=== PATIENT | male | born 1975 | race Caucasian/White ===

== ENCOUNTER → 2018-10-01 | Day surgery (SDC) | payer BC ==
[~2018-10-01] MED LIST: BUPIVACAIN-EPI 0.25%-1:200,000 30 ML VIAL SQ ONE; CHLOROPROCAINE 3% 30 MG/ML 20 ML VIAL ONE; LACTATED RINGERS 1,000 ML IV SCH; LIDOCAINE 1% 20 ML VIAL (10MG/ML) FOR IV START INTRADERMA ONE; SODIUM CHLORIDE 0.9% 50 ML with ceFAZolin 2,000 MG IV ONE; ceFAZolin 1,000 MG VIAL ONE
--- NOTE | 2018-10-01 07:54 | P.GSHP ---
History of Present Illness H&P Date: 10/01/18 Chief Complaint: Pilonidal cyst This a 43-year-old male who has an infected pilonidal cyst. Patient presents today for excision of pilonidal cyst. Patient aware that the wound will be packed postoperatively. Past Medical History Past Medical History: GERD/Reflux History of Any Multi-Drug Resistant Organisms: None Reported Past Surgical History: Orthopedic Surgery Smoking Status: Never smoker Past Drug Use History: None Reported Medications and Allergies Home Medications Medication Instructions Recorded Confirmed Type Ranitidine HCl [Zantac] 75 mg PO HS PRN 10/01/18 History Allergies Allergy/AdvReac Type Severity Reaction Status Date / Time No Known Allergies Allergy Verified 10/01/18 07:18 Surgical - Exam Vital Signs Temp Pulse Resp BP Pulse Ox 97.3 F L 74 18 125/76 97 10/01/18 07:23 10/01/18 07:23 10/01/18 07:23 10/01/18 07:23 10/01/18 07:23 - General well developed, well nourished, no distress - Eyes PERRL - ENT normal pinna - Neck no masses - Respiratory normal expansion - Cardiovascular Rhythm: regular - Abdomen Abdomen: soft, non tender - Integumentary Pilonidal cyst with evidence of drainage. Assessment and Plan Assessment: Pilonidal cyst. We'll perform excision.
[2018-10-01 08:50] VITALS: TEMP 98
--- NOTE | 2018-10-01 09:14 | P.OP ---
Date of Procedure: 10/01/18 Preoperative Diagnosis: Inflamed pilonidal cyst Postoperative Diagnosis: Inflamed pilonidal cyst Procedure(s) Performed: Excision of pilonidal cyst Anesthesia: regional, spinal Surgeon: John Santo Estimated Blood Loss (ml): 5 Pathology: other (Pilonidal cyst) Condition: stable Disposition: PACU Description of Procedure: The patient's placed on the operating table in the prone position. He received a previous spinal anesthetic. His gluteal area was prepped and draped usual sterile fashion. Patient had a pilonidal cyst in the midportion of his gluteal cleft. Elliptical skin incision was made. And then using electrocautery and Harmonic scissors the pilonidal cyst was excised. The wound was packed with wet -to-dry saline. The wound was insufflated with 50 mL of quarter percent Xylocaine with epinephrine. There is no bleeding seen. Sterile dressing applied. Patient top she will was sent to recovery room stable condition.
[2018-10-01 09:16] VITALS: RESP 18
[2018-10-01 09:44] VITALS: BP 119/79; PULSE 74
== END ==
LOC: OR 06:26
PROVIDERS: ATTEND Surgery
DX: L05.91 Pilonidal cyst without abscess (principal); K21.9 Gastro-esophageal reflux disease without esophagitis
CPT/HCPCS: 88304; 11770; J2400; J0690 ×2

== ENCOUNTER → 2018-10-12 | Outpatient (CLI) | payer BC ==
[2018-10-12 12:52] LABS: ALT 46 U/L (21-72); AST 34 U/L (17-59); Albumin 4.4 g/dL (3.5-5.0); Albumin/Globulin Ratio 1.5; Alkaline Phosphatase 46 U/L (38-126); Anion Gap 10 mmol/L; Blood Urea Nitrogen 26 mg/dL (9-20); Calcium 9.5 mg/dL (8.4-10.2); Carbon Dioxide 27 mmol/L (22-30); Chloride 103 mmol/L (98-107); Glucose 91 mg/dL (74-99); Potassium 4.2 mmol/L (3.5-5.1); Sodium 140 mmol/L (137-145); Total Bilirubin 0.5 mg/dL (0.2-1.3); Total Protein 7.4 g/dL (6.3-8.2)
[2018-10-12 13:08] LABS: HCT 42.3 % (39.0-53.0); HGB 13.8 gm/dL (13.0-17.5); MCH 30.2 pg (25.0-35.0); MCHC 32.7 g/dL (31.0-37.0); MCV 92.4 fL (80.0-100.0); Mean Platelet Volume 6.8; Platelet Count 235 k/uL (150-450); RBC 4.58 m/uL (4.30-5.90); RDW 11.7 % (11.5-15.5); WBC 7.1 k/uL (3.8-10.6)
== END | disposition home or self-care (01) ==
LOC: LABWHC1 11:16
PROVIDERS: ATTEND Anesthesiology
DX: D64.9 Anemia, unspecified (principal)
CPT/HCPCS: 36415; 80053; 85027

== ENCOUNTER 2019-12-22 12:50 | Day surgery (SDC) | payer BC ==
[2019-12-22 09:33] LABS: Basophils % (A) 0 %; Eosinophils # (A) 0.1 k/uL (0-0.7); Eosinophils % (A) 1 %; HCT 41.6 % (39.0-53.0); Lymphocytes # (A) 1.2 k/uL (1.0-4.8); Lymphocytes % (A) 17 %; MCH 30.6 pg (25.0-35.0); MCHC 33.6 g/dL (31.0-37.0); Mean Platelet Volume 7.4; Monocytes # (A) 0.4 k/uL (0-1.0); Monocytes % (A) 6 %; Neutrophils # (A) 5.1 k/uL (1.3-7.7); Neutrophils % (A) 73 %; Platelet Count 158 k/uL (150-450); RBC 4.56 m/uL (4.30-5.90); RDW 11.8 % (11.5-15.5); WBC 6.9 k/uL (3.8-10.6)
[2019-12-22 09:38] VITALS: RESP 16; TEMP 98.3
[2019-12-22 09:52] LABS: African American GFR (CKD) >90 (>60 ml/min/1.73 sqM); Anion Gap 6 mmol/L; Blood Urea Nitrogen 16 mg/dL (9-20); Calcium 9.3 mg/dL (8.4-10.2); Carbon Dioxide 29 mmol/L (22-30); Chloride 104 mmol/L (98-107); Glucose 101 mg/dL (74-99); Non-African American GFR(CKD) >90 (>60 ml/min/1.73 sqM); Potassium 4.6 mmol/L (3.5-5.1); Sodium 139 mmol/L (137-145)
[2019-12-22 10:03] LABS: Creatine Kinase MB 0.8 ng/mL (0.0-2.4); Troponin I <0.012 ng/mL (0.000-0.034)
[~2019-12-22 12:50] MED LIST changes: +ASPIRIN 81 MG ONE; -BUPIVACAIN-EPI 0.25%-1:200,000 30 ML VIAL SQ ONE; -CHLOROPROCAINE 3% 30 MG/ML 20 ML VIAL ONE; -LACTATED RINGERS 1,000 ML IV SCH; -LIDOCAINE 1% 20 ML VIAL (10MG/ML) FOR IV START INTRADERMA ONE; +NITROGLYCERIN SL TABS 0.4 MG TAB SUBLINGUAL ONE; +SODIUM CHLORIDE 0.9% 1,000 ML IV ONE; +SODIUM CHLORIDE 0.9% 1,000 ML in EMPTY BAG 1 BAG IV ONE; -SODIUM CHLORIDE 0.9% 50 ML with ceFAZolin 2,000 MG IV ONE; -ceFAZolin 1,000 MG VIAL ONE
[2019-12-22] MEDS ORDERED: LIDOCAINE 1% INJ 10MG/ML (20 ML MDV) ONE (13:09)
[2019-12-22] MEDS ORDERED: HEPARIN SODIUM 1,000 UN/ML (10ML VL) ONE (13:09)
[2019-12-22] MEDS ORDERED: VERAPAMIL 2.5 MG/ML 2 ML AMP ONE (13:09)
[2019-12-22] MEDS ORDERED: MIDAZOLAM 2 MG/2 ML VIAL IV ONE (13:20)
[2019-12-22] MEDS ORDERED: LIDOCAINE 1% INJ 10MG/ML (20 ML MDV) SQ ONE (13:21)
[2019-12-22] MEDS ORDERED: VERAPAMIL SYRINGE (5 MG/10 ML) INTRAARTER ONE (13:22)
[2019-12-22] MEDS ORDERED: HEPARIN SODIUM 1,000 UN/ML (10ML VL) IV ONE (13:25)
[2019-12-22] MEDS ORDERED: MIDAZOLAM 2 MG/2 ML VIAL IVP ONE (13:25)
[2019-12-22] MEDS ORDERED: IOPAMIDOL-370 125ML BTL INJ ONE (13:29)
[2019-12-22] MEDS ORDERED: RX INFO: IV CONTRAST WAS GIVEN 1 EACH MISC MISCELLANE PRN (13:38)
[2019-12-22 13:41] LABS: Creatine Kinase MB 0.6 ng/mL (0.0-2.4); Troponin I <0.012 ng/mL (0.000-0.034)
[2019-12-22] MEDS ORDERED: SODIUM CHLORIDE 0.9% 1,000 ML IV SCH (13:45)
--- NOTE | 2019-12-22 15:19 | CC ---
CARDIAC CATHETERIZATION REPORT DATE OF SERVICE: 12/22/2019 PERFORMING PHYSICIAN: Rodney Garcia MD. PROCEDURE PERFORMED: Selective right and left coronary angiogram. 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 He continues to have left arm discomfort associated with chest discomfort. He would like to have a definitive diagnosis and proceed with coronary angiogram. APPROACH: Right radial artery. COMPLICATION: None. LEVEL OF SEDATION: Moderate with sedation length of 10 minutes. PROCEDURE DESCRIPTION: After obtaining an informed consent, the patient was brought to the cardiac refuse laborer. The right radial artery was cannulated using micropuncture technique and a micropuncture wire passed easily, then I placed a 6-German sheath 11 cm in the right radial artery. After that, I did give the patient 2 mg of verapamil IA and 10,000 units of heparin IV. Selective right and left coronary angiogram performed using JR4 and JL3.5 catheters. I did not perform left heart catheterization on the patient. The procedure was completed without any complication. SELECTIVE CORONARY ANGIOGRAM: 1. The right coronary artery is a large caliber vessel and is a dominant vessel. It does have an inferior takeoff. It is angiographically normal but distally bifurcates into PDA and PLV branches, both appeared to be angiographically normal. 2. The left main is angiographically normal, it bifurcates into LCX and LAD. 3. The LCX is a large caliber vessel, it is a codominant vessel. It is angiographically normal. In the midportion, it gives rise into an OM branch which appeared to be angiographically normal. 4. The ramus intermedius is a large caliber vessel and seems to be angiographically normal. 5. The LAD, the proximal LAD appeared to be normal. It gives rise into first diagonal branch which seems to be normal. The mid LAD and distal LAD are angiographically normal. The LAD gives rise in the mid and distal portion to second and third diagonal branches and they appeared to be angiographically normal. CONCLUSION: 1. Normal coronary angiogram. 2. Medical treatment. 3. Follow up with the patient in a week. MMODL / IJN: [id number] /
--- NOTE | 2019-12-22 17:26 | P.CRDCN ---
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 The patient was driving to work today when he started experiencing discomfort over the left side of the chest, as dull kind of discomfort, with some radiation to left arm associated with numbness of the left arm as well. No dizziness or lightheadedness, heart racing or fluttering, syncope, nausea, or sweating. The EKG when he arrived showed sinus rhythm with nonspecific changes in the inferior leads and also some finding consistent was LVH. He underwent an echocardiogram which revealed normal left ventricle systolic function with evidence of mild aortic insufficiency. Because he continues to have a chest discomfort and the patient would like to have a definite diagnosis we decided to pursue was coronary angiogram. Past Medical History Past Medical History: GERD/Reflux History of Any Multi-Drug Resistant Organisms: None Reported Past Surgical History: Orthopedic Surgery Smoking Status: Never smoker Past Drug Use History: None Reported Medications and Allergies Home Medications Medication Instructions Recorded Confirmed Type Atorvastatin [Lipitor] 20 mg PO HS 12/22/19 12/22/19 History Allergies Allergy/AdvReac Type Severity Reaction Status Date / Time No Known Allergies Allergy Verified 12/22/19 09:39 Physical Exam Vitals: Vital Signs Temp Pulse Resp BP BP Pulse Ox 12/22/19 09:33 98.3 F 82 16 132/82 134/84 100 Intake and Output 12/22/19 12/22/19 12/22/19 06:59 14:59 22:59 Intake Total 150 Balance 150 Intake: IV 150 Other: Weight 92 kg - Constitutional General appearance: no acute distress - Respiratory Respiratory: bilateral: CTA - Cardiovascular Rhythm: regular Heart sounds: normal: S1, S2 Results 12/22/19 09:15 12/22/19 09:15 Cardiac Enzymes 12/22/19 12/22/19 Range/Units 09:15 12:46 CK-MB (CK-2) 0.8 0.6 (0.0-2.4) ng/mL Troponin I <0.012 <0.012 (0.000-0.034) ng/mL CBC 12/22/19 Range/Units 09:15 WBC 6.9 (3.8-10.6) k/uL RBC 4.56 (4.30-5.90) m/uL Hgb 14.0 (13.0-17.5) gm/dL Hct 41.6 (39.0-53.0) % Plt Count 158 (150-450) k/uL Comprehensive Metabolic Panel 12/22/19 Range/Units 09:15 Sodium 139 (137-145) mmol/L Potassium 4.6 (3.5-5.1) mmol/L Chloride 104 (98-107) mmol/L Carbon Dioxide 29 (22-30) mmol/L BUN 16 (9-20) mg/dL Creatinine 0.88 (0.66-1.25) mg/dL Glucose 101 H (74-99) mg/dL Calcium 9.3 (8.4-10.2) mg/dL Current Medications Generic Name Dose Route Start Last Admin Trade Name Freq PRN Reason Stop Dose Admin Sodium Chloride 1,000 ml/ IV 1,000 mls @ 92.079 mls/hr 12/22/19 09:24 Solution IV 12/22/19 20:15 .[id number] ONE 1 ML/KG/HR Sodium Chloride 1,000 mls @ 75 mls/hr 12/22/19 13:45 Saline 0.9% IV 12/22/19 19:46 .[id number] FRANKIE Miscellaneous Information 1 each 12/22/19 13:38 Rx Info: Iv Contrast Was Given MISCELLANE 12/24/19 13:38 DAILY PRN Per Protocol Intake and Output 12/22/19 12/22/19 12/22/19 06:59 14:59 22:59 Intake Total 150 Balance 150 Intake: IV 150 Other: Weight 92 kg Patient Weight 12/23/19 06:59 Weight 92 kg 12/22/19 09:15 12/22/19 09:15 Assessment and Plan Assessment: Assessment #1 chest discomfort concerning for angina #2 dyslipidemia #3 significant family history of CAD Plan #1 because the patient continues to have a chest discomfort and because of the family history and he would like to have a definite diagnosis we decided to pursue with coronary angiogram. I discussed the procedure in details to the patient. He will be scheduled to undergo coronary angiogram later on today.
[2019-12-22 20:03] VITALS: BP 145/78; PULSE 81
--- NOTE | 2019-12-23 16:34 | ECHOF ---
Referral Reason:chest pain MEASUREMENTS -------- HEIGHT: 172.7 cm WEIGHT: 72.6 kg BP: RVIDd: 2.7 cm (< 3.3) IVSd: 1.5 cm (0.6 - 1.1) LVIDd: 4.2 cm (3.9 - 5.3) LVPWd: 1.3 cm (0.6 - 1.1) IVSs: 1.6 cm LVIDs: 3.2 cm LVPWs: 1.4 cm LA Diam: 3.1 cm (2.7 - 3.8) Ao Diam: 3.5 cm (2.0 - 3.7) AV Cusp: 1.8 cm (1.5 - 2.6) MV EXCURSION: 17.245 mm (> 18.000) MV EF SLOPE: 55 mm/s (70 - 150) EPSS: 0.7 cm MV E Jhonatan: 0.66 m/s MV DecT: 273 ms MV A Jhonatan: 0.76 m/s MV E/A Ratio: 0.88 AR PHT: 413 ms RAP: 5.00 mmHg RVSP: 28.47 mmHg FINDINGS -------- Sinus rhythm. This was a technically good study. The left ventricular size is normal. There is moderate concentric left ventricular hypertrophy. O verall left ventricular systolic function is normal with, an EF between 55 - 60 %. The diastolic fi lling pattern is normal for the age of the patient 11.38. The right ventricle is normal in size. The left atrial size is normal. The right atrial size is normal. There is mild aortic regurgitation. Mild mitral annular calcification present. Mild mitral regurgitation is present. Mild tricuspid regurgitation present. Right ventricular systolic pressure is normal at < 35 mmHg. There is no evidence of pulmonary hypertension. There is no pulmonic regurgitation present. The aortic root size is normal. There is no pericardial effusion. CONCLUSIONS -------- 1. Sinus rhythm. 2. This was a technically good study. 3. The left ventricular size is normal. 4. There is moderate concentric left ventricular hypertrophy. 5. Overall left ventricular systolic function is normal with, an EF between 55 - 60 %. 6. The diastolic filling pattern is normal for the age of the patient 11.38 7. The right ventricle is normal in size. 8. The left atrial size is normal. 9. The right atrial size is normal. 10. There is mild aortic regurgitation. 11. Mild mitral annular calcification present. 12. Mild mitral regurgitation is present. 13. Mild tricuspid regurgitation present. 14. Right ventricular systolic pressure is normal at < 35 mmHg. 15. There is no evidence of pulmonary hypertension. 16. There is no pulmonic regurgitation present. 17. The aortic root size is normal. 18. There is no pericardial effusion. PET CARE ASSISTANT: Virgen Randolph RDCS
== END 2019-12-22 16:57 | disposition home or self-care (01) ==
LOC: CATHCVL 12:50
PROVIDERS: ATTEND Internal Medicine Interventional Cardiology
DX: I20.0 Unstable angina (principal); E78.5 Hyperlipidemia, unspecified; K21.9 Gastro-esophageal reflux disease without esophagitis; Z79.899 Other long term (current) drug therapy; Z82.49 Family history of ischemic heart disease and other diseases of the circulatory system
CPT/HCPCS: 93306; 93005; 93454; 80048; 82550; 82553; 84484; 85025; C1769; C1894; J2250; J2001; J1644; Q9967